=== PATIENT | male | born 1985 | race Caucasian/White ===

== ENCOUNTER 2022-01-26 19:35 | Inpatient (IN) | payer OTHER ==
[2022-01-26 19:54] VITALS: BMI 23.6
[2022-01-26] MEDS ORDERED: BISMUTH SUBSALICYLATE 524 MG/30 ML PO PRN (22:31)
[2022-01-26] MEDS ORDERED: ACETAMINOPHEN 325 MG TABLET (FP) PO PRN ×2 (22:31)
[2022-01-26] MEDS ORDERED: BENZOCAINE/MENTHOL (CHLORASEPTIC ) LOZENGE MM PRN (22:31)
[2022-01-26] MEDS ORDERED: DICYCLOMINE HCL 10 MG CAPSULE PO PRN (22:31)
[2022-01-26] MEDS ORDERED: ONDANSETRON *ODT* 4 MG TABLET SL PRN (22:31)
[2022-01-26] MEDS ORDERED: MAGNESIUM HYDROX 2400MG/30ML ORAL SUSPENSION 30 ML CUP PO PRN (22:31)
[2022-01-26] MEDS ORDERED: LOPERAMIDE HCL 2 MG CAPSULE PO PRN (22:31)
[2022-01-26] MEDS ORDERED: MAGNESIUM CITRATE 300 ML BOTTLE PO PRN (22:31)
[2022-01-26] MEDS ORDERED: MELATONIN 5 MG TABLETS PO PRN (22:31)
[2022-01-26] MEDS ORDERED: IBUPROFEN 400 MG TABLET (FP) PO PRN (22:31)
[2022-01-26] MEDS ORDERED: MAG HYDROX/AL HYDROX/SIMETH 30 ML UNIT-DOSE CUP PO PRN (22:31)
[2022-01-26] MEDS ORDERED: methaDONE HCL 10 MG TABLET (FOR DETOX USE ONLY) PO ONE (22:33)
[2022-01-27] MEDS ORDERED: methaDONE HCL 10 MG TABLET (FOR DETOX USE ONLY) PO ONE (04:15)
[2022-01-27] MEDS ORDERED: methaDONE HCL 10 MG TABLET (FOR DETOX USE ONLY) ONE (09:20)
[2022-01-27] MEDS: METHOCARBAMOL 500 MG TABLET PO PRN ×2 (10:22→16:45)
[2022-01-27] MEDS: PRENATAL VITAMINS W/ FOLIC ACID TABLET (FP) PO SCH ×2 (10:22→12:21)
[2022-01-27] MEDS: hydrOXYzine PAMOATE 25 MG CAPSULE (FP) PO PRN (10:22)
[2022-01-27] MEDS ORDERED: diazePAM 5 MG TABLET PO PRN (14:09)
[2022-01-27 14:26] LABS: CALCIUM 9.3 mg/dL (8.5-10.1)
[2022-01-27 14:27] LABS: ALBUMIN 3.4 g/dl (3.4-5.0); BLOOD UREA NITROGEN 13.7 mg/dL (7-18); HEMOGLOBIN 13.8 GM/dL (11.7-16.9); MCH 29.4 pg (25.7-33.7); MCHC 32.2 g/dl (32.0-35.9); MEAN CELL VOLUME 91.5 fl (80-96); MEAN PLT VOLUME 9.6 fl (7.5-11.1); PLATELET COUNT 292 10^3/uL (134-434); WHITE BLOOD COUNT 8.8 K/mm3 (4.0-10.0)
[2022-01-27 14:30] LABS: CREATININE 0.8 mg/dL (0.55-1.3)
[2022-01-27 14:33] LABS: BILIRUBIN,TOTAL 0.4 mg/dL (0.2-1); TOT PROT 7.3 g/dl (6.4-8.2)
[2022-01-27] MEDS: cloNIDine HCL 0.1 MG TABLET PO PRN (16:45)
[2022-01-27] MEDS: IBUPROFEN 600 MG TABLET (FP) PO PRN (16:46)
[2022-01-27] MEDS: THIAMINE HCL 100 MG TABLET (FP) PO SCH (23:41)
[2022-01-28] MEDS ORDERED: methaDONE HCL 10 MG TABLET (FOR DETOX USE ONLY) PO ONE (10:00)
[2022-01-28] MEDS: diazePAM 5 MG TABLET PO PRN ×2 (10:04→22:12)
[2022-01-28] MEDS: hydrOXYzine PAMOATE 25 MG CAPSULE (FP) PO PRN (10:04)
[2022-01-28] MEDS: PRENATAL VITAMINS W/ FOLIC ACID TABLET (FP) PO SCH (10:09)
[2022-01-28] MEDS: IBUPROFEN 600 MG TABLET (FP) PO PRN (11:07)
[2022-01-28] MEDS: cloNIDine HCL 0.1 MG TABLET PO PRN ×2 (11:07→22:13)
[2022-01-28] MEDS: METHOCARBAMOL 500 MG TABLET PO PRN ×2 (11:07→22:12)
[2022-01-28] MEDS: THIAMINE HCL 100 MG TABLET (FP) PO SCH (23:37)
[2022-01-29] MEDS ORDERED: diazePAM 5 MG TABLET PO PRN (00:01)
[2022-01-29] MEDS ORDERED: methaDONE HCL 10 MG TABLET (FOR DETOX USE ONLY) ONE (09:19)
[2022-01-29] MEDS: PRENATAL VITAMINS W/ FOLIC ACID TABLET (FP) PO SCH (10:28)
[2022-01-29] MEDS: METHOCARBAMOL 500 MG TABLET PO PRN (10:28)
[2022-01-29] MEDS: hydrOXYzine PAMOATE 25 MG CAPSULE (FP) PO PRN (10:28)
[2022-01-29 18:27] VITALS: BP 119/60; PULSE 68; TEMP 97
[2022-01-30] MEDS ORDERED: methaDONE HCL 10 MG TABLET (FOR DETOX USE ONLY) PO ONE (10:00)
== END 2022-01-29 17:32 | disposition left against medical advice (07) | DRG 770 ==
LOC: YASAS 19:35 → Y6N 23:27
PROVIDERS: ADMIT Allergy & Immunology; ATTEND Surgery
PROC: HZ2ZZZZ Detoxification Services for Substance Abuse Treatment (ICD-10-PCS; principal; 2022-01-26)
DX: F11.23 Opioid dependence with withdrawal (principal); F15.20 Other stimulant dependence, uncomplicated; F12.20 Cannabis dependence, uncomplicated; F43.10 Post-traumatic stress disorder, unspecified; F90.9 Attention-deficit hyperactivity disorder, unspecified type; G40.909 Epilepsy, unspecified, not intractable, without status epilepticus; Z62.810 Personal history of physical and sexual abuse in childhood; Z56.0 Unemployment, unspecified; Z59.00 Homelessness unspecified
CPT/HCPCS: 36415; 80053; 80177; 85027; 86780; 87811; C9803-CS; J0735; U0003; U0005